=== PATIENT | male | born 1970 | race Caucasian/White ===

== ENCOUNTER 2016-10-29 08:50 | Emergency (ER) | payer BC, MEDICAID ==
[~2016-10-29] VITALS: Ht 185.4 cm; Wt 123.0 kg
[2016-10-29 08:57] VITALS: BP 124/84; PULSE 99; RESP 20; TEMP 98.5; O2SAT 92
[2016-10-29] MEDS ORDERED: IOHEXOL 350 MG/ML 10 ML VIAL (for RAD DIAG) IV ONE (10:11)
--- NOTE | 2016-10-29 10:15 | PD ---
HPI . Sore throat Chief Complaint: ENT Complaint Time Seen by Provider: 09:15 Travel History International Travel<30 days: No Contact w/Intl Traveler<30days: No Traveled to known affect area: No History of Present Illness HPI Patient presents with the chief complaint of a sore throat. This been bothering him for several days. He tells like he is swollen on the right side. He states he's having trouble swallowing. He believes that he may have had a fever at the onset of the illness. He denies any other upper respiratory symptoms. [id number]: Throat DURATION: 4 days TIMING: Gradually worsening MODIFYING FACTORS: No exacerbating or relieving factors ASSOCIATED SYMPTOMS: No associated fever or other upper respiratory symptoms PFSH Past Medical History Medical History: Denies Significant Hx Influenza Vaccination: No Past Surgical History Surgical History: No Previous Surgery Social History Alcohol Use: Yes (6-8 BEERS 2XWEEK) Tobacco Use: Yes (1PPD) Substance Use: No Allergies-Medications (Allergen,Severity, Reaction): Coded Allergies: Fentanyl (Verified Allergy, Severe, "shuts my heart down", 10/29/16) Reported Meds & Prescriptions Reported Meds & Active Scripts Active No Active Prescriptions or Reported Medications Review of Systems Except as stated in HPI: all other systems reviewed are Neg General / Constitutional: No: Fever HENT: Positive: Sore Throat, No: Rhinorrhea, Congestion, Ear Discharge Respiratory: No: Cough Physical Exam Narrative GENERAL: Awake and alert and in no acute distress. SKIN: Warm and dry. ENT: He has some erythema of the oropharynx. It looks like postnasal drip. Ears no tonsillar enlargement. There is no lucie-tonsillar edema. TMs are shiny flynn with good light reflexes bilaterally. NECK: No cervical lymphadenopathy or masses palpated CARDIOVASCULAR: Regular rate and rhythm. RESPIRATORY: No accessory muscle use. MUSCULOSKELETAL: No obvious deformities. No edema. NEUROLOGICAL: Awake and alert. No obvious cranial nerve deficits. Motor grossly within normal limits. Normal speech. PSYCHIATRIC: Appropriate mood and affect; insight and judgment normal. Data Data Last Documented VS Vital Signs Date Time Temp Pulse Resp B/P Pulse Ox O2 Delivery O2 Flow Rate FiO2 10/29/16 08:57 98.5 99 20 124/84 92 Orders Group A Rapid Strep Screen (10/29/16 09:15) Ct Soft Tiss Neck W Iv Cont (10/29/16 09:24) Strep Culture (Group A) (10/29/16 09:19) Iohexol 350 Inj (Omnipaque 350 Inj) (10/29/16 10:11) MDM Medical Decision Making Medical Screen Exam Complete: Yes Emergency Medical Condition: Yes Differential Diagnosis Differential diagnosis of sore throat includes but is not limited to viral illness, strep throat, mononucleosis, retropharyngeal abscess, peritonsillar abscess Narrative Course Patient presents for the evaluation of a sore throat. He has some very mild erythema is most consistent with postnasal drip. His exam is otherwise unremarkable. Rapid strep screen is negative. Last Impressions Neck CT 10/29/16 09 Signed Impressions: Service Date/Time: , October 29, 2016 09:57 - CONCLUSION: 1. Prominent adenoidal and tonsillar hypertrophy. No evidence of abscess. 2. Pansinusitis with acute sphenoid sinusitis. Kamaljit Snow MD Given the CT results, I will treat him with antibiotics. Diagnosis Primary Impression: Tonsillitis Additional Impression: Sinusitis Qualified Code: J01.40 - Acute non-recurrent pansinusitis Patient Instructions: General Instructions, Sinusitis (ED), Tonsillitis (DC) Additional Instructions: I recommend the use of a Neti Pot. You may use a nasal spray such as Afrin for up to 3 days as needed for nasal congestion. You may take an ontr-qxj-llkyrca antihistamine such as Zyrtec, Joanne or Claritin as needed for runny secretions. You may take pseudoephedrine as needed for congestion. You will need to sign for this at the pharmacy. You may take plain Mucinex, 1200 mg twice a day as needed for thick secretions. You may take a cough syrup such as Delsym as needed for cough. Motrin as needed for fever and body aches. Throat lozenges/sprays as needed for sore throat. Warm salt water gargles for sore throat. Hot tea with lemon and honey also helps soothe a sore throat. Scripts Amoxicillin-Clavulanate (Augmentin)875-125 mg Wiz166 Mg PO BID #20 TAB Ref 0 not for use in CrCl <30 ml/min. Prov:Janee Dunn MD 10/29/16 Disposition: 01 DISCHARGE HOME Condition: Stable Janee Dunn MD Oct 29, 2016 10:15
--- NOTE | 2016-10-29 11:14 | RADHPO ---
EXAM DATE/TIME: 10/29/2016 09:57 [facility] COMPARISON: No previous studies available for comparison. INDICATIONS : Sore throat and difficulty swallowing. IV CONTRAST: 60 cc Omnipaque 350 (iohexol) IV RADIATION DOSE: 15.32 CTDIvol (mGy) MEDICAL HISTORY : None SURGICAL HISTORY : None. ENCOUNTER: Initial ACUITY: 4 - 6 days PAIN SCALE: 8/10 LOCATION: Right neck TECHNIQUE: Volumetric scanning of the neck was performed. Using automated exposure control and adjustment of th e mA and/or kV according to patient size, radiation dose was kept as low as reasonably achievable to obtain optimal diagnostic quality images. FINDINGS: NASOPHARYNX: The posterior nasopharyngeal soft tissues are somewhat prominent but symmetric. No focal mass is iden tified. OROPHARYNX: Adenoidal and tonsillar hypertrophy bilaterally. No peripherally enhancing fluid collections identifi ed. Soft tissue prominence at the base of the tongue bilaterally also likely represents prominent lym phoid tissue. LARYNX: The supraglottic, glottic, and infraglottic structures are intact. PARAPHARYNGEAL: The parapharyngeal space is intact. SALIVARY GLANDS: The parotid and submandibular glands are intact. LYMPH NODES: Local symmetric mild prominent jugular chain lymph nodes bilaterally, likely reactive. No necrotic ly mph nodes identified. THYROID: Homogeneous enhancement without evidence of nodule. BONES: Unremarkable. Moderate severity maxillary sinus mucosal thickening bilaterally and severe partial opa cification of the ethmoid and sphenoid sinuses. Air-fluid level in the sphenoid sinus. CONCLUSION: 1. Prominent adenoidal and tonsillar hypertrophy. No evidence of abscess. 2. Pansinusitis with acute sphenoid sinusitis. Kamaljit Snow MD on October 29, 2016 at 11:05 Board Certified Radiologist. This report was verified electronically.
[2016-10-29] MEDS ORDERED: AUGM875T PO (11:24)
== END 2016-10-29 11:42 | disposition home or self-care (01) ==
LOC: PHED 08:50
DX: J03.90 Acute tonsillitis, unspecified (principal); J01.40 Acute pansinusitis, unspecified; F17.200 Nicotine dependence, unspecified, uncomplicated
CPT/HCPCS: 70491; 87081; 87880; 99284; Q9967